=== PATIENT | male | born 1945 | race Caucasian/White ===

== ENCOUNTER → 2019-07-06 17:49 | Outpatient (CLI) | payer MEDICARE, MEDICAID, SELFPAY ==
--- NOTE | 2019-07-06 17:52 | CT_ITS ---
STUDY: CT ABDOMEN AND PELVIS WITH CONTRAST REASON FOR EXAM: Male, 74 years old. Abdominal pain. History of hypertension. RADIATION DOSAGE (If Supplied By Facility): CTDIvol = ( 19.78 ) mGy, DLP = ( 2577.80 ) mGycm TECHNIQUE: Transaxial images were obtained from the dome of the diaphragm to the symphysis pubis with oral contrast. Oral and amp; IV Readi-CAT and amp; 100mL Isovue-300 100ml was administered. Sagittal and coronal images were reconstructed. Individualized dose optimization techniques were used for this CT. COMPARISON: 07/15/2015. FINDINGS: There is mild posterior lower lobe atelectasis, remainder of the lung bases are clear. There are pacemaker leads in place. Heart maintains normal size. Normal liver. Normal gallbladder and extrahepatic biliary system. Normal spleen. Normal pancreas. There is mild bilateral adrenal hyperplasia. Otherwise normal bilateral adrenal glands. Normal right kidney. Normal left kidney. There is a moderate hiatal hernia. Remainder of the visualized stomach is normal. Normal small intestine. There is increased fecal debris within the colon consistent with constipation. Distinct appendix not seen. There is mild atherosclerotic calcification of the abdominal aorta, without a demonstrated aneurysm. Normal inferior vena cava. Normal retroperitoneum. Normal urinary bladder. Normal visualized prostate gland. Redemonstrated is a small umbilical hernia containing fat. Abdominal wall. There are diffuse degenerative changes of the visualized lumbar spine. CT/Abdomen/Pelvis WITH Contrast IMPRESSION: Constipation. No signs of bowel obstruction. Abdominal viscera within normal limits. Electronically Signed: Sanjuana Betancur MD at 8:12 EDT , Service support ,
== END ==
PROVIDERS: Family Provider Family Medicine; PCP Family Medicine; Referring Provider Family Medicine; Visit Provider Family Medicine
DX: R10.9 Unspecified abdominal pain (principal); J44.9 Chronic obstructive pulmonary disease, unspecified
CPT/HCPCS: 74177; Q9967

== ENCOUNTER → 2019-08-14 13:51 | Outpatient (CLI) | payer MEDICARE, MEDICAID, SELFPAY ==
--- NOTE | 2019-08-14 13:53 | ECHOD_ITS ---
Reason For Study: ARRHYTHMIA Procedure This was a 2D Doppler, Color Flow transthoracic echocardiogram. Exam performed in department. Left Ventricle Normal size and thickness. The estimated ejection fraction is 55 %. Stage 1 diastolic dysfunction. No regional wall motion abnormalities noted. Right Ventricle Normal size and thickness. A moderator band is seen in the right ventricle. ICD or pacer leads identified within the right ventricle. Normal systolic function. Atria Normal left atrium. Normal right atrium. Normal atrial septum. Mitral Valve The mitral valve is structurally normal. No prolapse or stenosis seen. Trivial mitral valve insufficiency. Tricuspid Valve Normal tricuspid valve. Mild (1+) tricuspid valve insufficiency. Right ventricular systolic pressure estimated to be 29 mmHg. Aortic Valve Normal aortic valve. Trisinus/trileaflet aortic valve. Trivial aortic valve insufficiency. Pulmonic Valve Normal pulmonic valve. Great Vessels Normal aortic root. Normal arch. Normal inferior vena cava. Inferior vena cava collapse with sniff. Pericardium/Pleural No pericardial effusion. MMode/2D Measurements & Calculations LVIDd: 4.7 cm IVSd: 1.1 cm Ao root diam: 3.8 cm LVIDs: 3.1 cm LVPWd: 1.1 cm RVDd: 2.9 cm FS: 34.8 % LAV(MOD-bp): 47.0 ml LA A4 area: 16.4 cm2 LA dimension(2D): 4.0 cm LAV(MOD-bp) Indexed: 23.5 ml/m2 LAV(MOD-sp2): 45.5 ml LAV(MOD-sp4): 45.1 ml RA A4 area: 17.5 cm2 Time Measurements MV dec time: 0.23 sec Doppler Measurements & Calculations MV E max cullen: 71.5 cm/sec Lat Peak E' Cullen: 10.2 cm/sec Med Peak E' Cullen: 7.0 cm/sec MV A max cullen: 86.1 cm/sec E/E' lat: 7.0 E/E' med: 10.3 MV E/A: 0.83 Ao V2 max: 125.9 cm/sec LV V1 max: 93.1 cm/sec PA V2 max: 81.3 cm/sec Ao max P.3 mmHg LV V1 max P.5 mmHg TR max cullen: 239.4 cm/sec TR max P.0 mmHg Interpretation Summary The estimated ejection fraction is 55 %. Stage 1 diastolic dysfunction. Trivial mitral valve insufficiency. Mild (1+) tricuspid valve insufficiency. Right ventricular systolic pressure estimated to be 29 mmHg. Trivial aortic valve insufficiency. Compared to echo report dated 04/10/2015, no appreciable changes noted. Ordering Physician: Adrian Chavira Referring Physician: Yuriy Sutton Performed By: Oma Gonzales RDCS, RVT
== END ==
PROVIDERS: Family Provider Family Medicine; PCP Family Medicine; Referring Provider Internal Medicine Cardiovascular Disease; Visit Provider Internal Medicine Cardiovascular Disease
DX: I50.32 Chronic diastolic (congestive) heart failure (principal); I49.5 Sick sinus syndrome; Z86.79 Personal history of other diseases of the circulatory system; Z95.0 Presence of cardiac pacemaker
CPT/HCPCS: 93306

== ENCOUNTER → 2019-12-18 13:58 | Outpatient (CLI) | payer MEDICARE, MEDICAID, SELFPAY | LOC: LABSPEC 13:59 → MTDU 14:16 | PROVIDERS: PCP Family Medicine; Visit Provider Family Medicine | DX: U07.1 COVID-19 (principal) | CPT/HCPCS: 87635; U0004 ==